=== PATIENT | female | born 1950 | race Hispanic/Latino ===

== ENCOUNTER 2022-11-09 11:14 | Inpatient (IN) | payer MEDICARE ==
[~2022-11-09] VITALS: Ht 162.6 cm; Wt 64.4 kg
[~2022-11-09 11:14] MED LIST: METFORMIN HCL500 MG PO; PHENTERMINE H37.5 MG PO; TOLTERODINE TART2 MG PO
[2022-11-09 12:02] LABS: BASOPHILS # (AUTO) 0.1 (0.0-0.1); BASOPHILS % 0.4 % (0.0-1.0); EOSINOPHILS % 0.2 % (0.0-6.0); HEMATOCRIT 40.2 % (34.2-44.1); HEMOGLOBIN 13.6 g/dL (12.0-16.0); LYMPHOCYTES # (AUTO) 1.8 (1.0-3.2); LYMPHOCYTES % 13.7 % (18.0-39.1); MEAN CORPUSCULAR HEMOGLOBIN 28.9 pg (28-32); MEAN CORPUSCULAR HGB CONC 33.8 g/dL (31-35); MEAN CORPUSCULAR VOLUME 85.5 fL (81-99); MONOCYTES # (AUTO) 1.4 (0.2-0.8); MONOCYTES % 10.3 % (4.4-11.3); NEUTROPHILS # (AUTO) 9.9 (2.1-6.9); NEUTROPHILS % 74.3 % (38.7-80.0); PLATELET COUNT 243 x10e3/uL (140-360); RED CELL DISTRIBUTION WIDTH 13.2 % (11.7-14.4)
[2022-11-09 12:11] LABS: INR 1.02; PROTHROMBIN TIME 13.9 seconds (11.9-14.5)
[2022-11-09 12:12] LABS: PARTIAL THROMBOPLASTIN TIME 29.9 seconds (23.8-35.5)
[2022-11-09] MEDS ORDERED: SODIUM CHLORIDE 0.9% 500ML 500 ML IV ONE (12:15)
[2022-11-09 12:26] LABS: ALANINE AMINOTRANSFERASE 35 IU/L (0-55); ALBUMIN 2.9 g/dL (3.5-5.0); ALBUMIN/GLOBULIN RATIO 0.6 (0.8-2.0); ALKALINE PHOSPHATASE 80 IU/L (40-150); ANION GAP 21.6 mmol/L (8-16); BLOOD UREA NITROGEN 11 mg/dL (7-26); BUN/CREATININE RATIO 13 (6-25); CARBON DIOXIDE 21 mmol/L (22-29); CHLORIDE 94 mmol/L (98-107); CREATINE KINASE 25 IU/L (29-168); CREATININE, SERUM 0.84 mg/dL (0.57-1.11); GLUCOSE 336 mg/dL (74-118); MAGNESIUM 1.3 MG/DL (1.3-2.1); POTASSIUM 3.6 mmol/L (3.5-5.1); SODIUM 133 mmol/L (136-145)
[2022-11-09 14:19] LABS: ABG HCO3 24 mmol/L (22-26); ABG PCO2 35 mmHg (35-45); ABG PH 7.44 (7.35-7.45); ABG PO2 79 mmHg (80-105); ABG TCO2 25
[2022-11-09] MEDS ORDERED: DEXTROSE 50% SYRINGE 50 ML IV PRN (15:00)
[2022-11-09] MEDS ORDERED: ONDANSETRON HCL INJ 2MG/ML 2ML 2 MG/ML VIAL IV PRN (15:00)
[2022-11-09 15:33] LABS: CLARITY,URINE TURBID (CLEAR); COLOR,URINE YELLOW (YELLOW); KETONES,URINE 2+ (NEGATIVE); LEUKOCYTE ESTERASE ,URINE MODERATE (NEGATIVE); NITRITE,URINE NEGATIVE (NEGATIVE); PROTEIN,URINE DIPSTICK TRACE (NEGATIVE); URINE UROBILINOGEN 0.2 mg/dL (0.2 - 1)
[2022-11-09 15:45] LABS: BACTERIA,URINE MODERATE /HPF; WBC,URINE (MAN) >50 /HPF (0-5); YEAST,URINE MODERATE
[2022-11-09] MEDS: INSULIN LISPRO 100 UNIT/1 ML 3ML VIAL SQ SCH ×2 (16:10→21:58)
[2022-11-09] MEDS: SODIUM CHLORIDE 0.9% 1000ML 1,000 ML IV SCH (16:11)
[2022-11-09] MEDS: ACETAMINOPHEN 325 MG TAB PO PRN (18:50)
[2022-11-09 20:00] VITALS: BP 125/61; PULSE 72; RESP 18; TEMP 98.1; O2SAT 99
[2022-11-09 20:25] VITALS: BP 125/61; PULSE 72; RESP 20; TEMP 98.1; O2SAT 99
[2022-11-09 20:43] VITALS: BP 125/61; PULSE 72; RESP 20; TEMP 98.1; O2SAT 99
[2022-11-09] MEDS ORDERED: INSULIN GLARGINE 100 UNITS/ML VIAL SQ SCH (21:00)
[2022-11-10] VITALS: BP 123/63; PULSE 88; RESP 18; TEMP 97.8; O2SAT 97
[2022-11-10 05:01] LABS: BASOPHILS % 0.5 % (0.0-1.0); EOSINOPHILS # (AUTO) 0.1 (0.0-0.4); EOSINOPHILS % 1.6 % (0.0-6.0); HEMATOCRIT 39.1 % (34.2-44.1); HEMOGLOBIN 12.7 g/dL (12.0-16.0); LYMPHOCYTES # (AUTO) 1.4 (1.0-3.2); MEAN CORPUSCULAR HEMOGLOBIN 28.9 pg (28-32); MEAN CORPUSCULAR HGB CONC 32.5 g/dL (31-35); MEAN CORPUSCULAR VOLUME 88.9 fL (81-99); MONOCYTES # (AUTO) 0.9 (0.2-0.8); MONOCYTES % 10.4 % (4.4-11.3); NEUTROPHILS # (AUTO) 5.7 (2.1-6.9); NEUTROPHILS % 69.4 % (38.7-80.0); PLATELET COUNT 166 x10e3/uL (140-360); RED CELL DISTRIBUTION WIDTH 12.9 % (11.7-14.4)
[2022-11-10 05:28] LABS: ALBUMIN 2.4 g/dL (3.5-5.0); ALBUMIN/GLOBULIN RATIO 0.6 (0.8-2.0); ANION GAP 15.4 mmol/L (8-16); CALCIUM 9.3 mg/dL (8.4-10.2); CREATININE, SERUM 0.73 mg/dL (0.57-1.11); POTASSIUM 3.4 mmol/L (3.5-5.1)
[2022-11-10] MEDS: SODIUM CHLORIDE 0.9% 1000ML 1,000 ML IV SCH ×2 (06:21→13:20)
[2022-11-10] MEDS: INSULIN LISPRO 100 UNIT/1 ML 3ML VIAL SQ SCH ×4 (07:30→22:04)
[2022-11-10 08:35] VITALS: BP 135/65; PULSE 78; RESP 16; TEMP 98.3; O2SAT 95
[2022-11-10 12:25] VITALS: BP 149/90; PULSE 94; RESP 16; TEMP 101; O2SAT 97
[2022-11-10 17:21] VITALS: BP 119/50; PULSE 78; RESP 18; TEMP 98; O2SAT 98
[2022-11-10 20:00] VITALS: BP 126/55; PULSE 77; RESP 18; TEMP 99.2; O2SAT 94
[2022-11-10 21:41] VITALS: BP 126/55; PULSE 77; RESP 18; TEMP 99.2; O2SAT 94
[2022-11-10] MEDS: THIAMINE HCL INJ 100 MG/ML 2ML VIAL IV SCH (22:02)
[2022-11-10] MEDS: INSULIN GLARGINE 100 UNITS/ML VIAL SQ SCH (22:04)
[2022-11-11] VITALS (7 sets, daily range): BP systolic 113–135; BP diastolic 56–80; PULSE 62–72; RESP 15–19; TEMP 97.7–98.7; O2SAT 96–100
[2022-11-11] MEDS: SODIUM CHLORIDE 0.9% 1000ML 1,000 ML IV SCH ×2 (04:24→14:16)
[2022-11-11] MEDS: THIAMINE HCL INJ 100 MG/ML 2ML VIAL IV SCH ×3 (06:22→21:50)
[2022-11-11] MEDS: ACETAMINOPHEN 325 MG TAB PO PRN ×2 (08:11→16:28)
[2022-11-11] MEDS: INSULIN LISPRO 100 UNIT/1 ML 3ML VIAL SQ SCH ×4 (08:14→21:53)
[2022-11-11] MEDS ORDERED: ONDANSETRON HCL 4 MG ORAL DISINTEGRATING TAB PO PRN (10:45)
[2022-11-11] MEDS ORDERED: MAGNESIUM SULFATE 2GM/50ML 50 ML IV ONE (10:52)
[2022-11-11] MEDS: INSULIN GLARGINE 100 UNITS/ML VIAL SQ SCH (21:53)
[2022-11-12] VITALS (8 sets, daily range): BP systolic 123–147; BP diastolic 55–72; PULSE 63–83; RESP 16–18; TEMP 97.4–99.2; O2SAT 96–100
[2022-11-12] MEDS: THIAMINE HCL INJ 100 MG/ML 2ML VIAL IV SCH ×3 (06:32→21:28)
[2022-11-12] MEDS: SODIUM CHLORIDE 0.9% 1000ML 1,000 ML IV SCH ×2 (06:32→14:39)
[2022-11-12] MEDS: INSULIN LISPRO 100 UNIT/1 ML 3ML VIAL SQ SCH ×4 (07:30→19:58)
[2022-11-12] MEDS: ACETAMINOPHEN 325 MG TAB PO PRN ×2 (07:46→16:01)
[2022-11-12] MEDS: INSULIN GLARGINE 100 UNITS/ML VIAL SQ SCH (19:58)
[2022-11-13] VITALS (8 sets, daily range): BP systolic 130–156; BP diastolic 61–90; PULSE 63–81; RESP 16–18; TEMP 97.2–99; O2SAT 96–100
[2022-11-13] MEDS: SODIUM CHLORIDE 0.9% 1000ML 1,000 ML IV SCH (04:40)
[2022-11-13] MEDS: ACETAMINOPHEN 325 MG TAB PO PRN (04:44)
[2022-11-13] MEDS: THIAMINE HCL INJ 100 MG/ML 2ML VIAL IV SCH ×3 (06:47→21:27)
[2022-11-13] MEDS: INSULIN LISPRO 100 UNIT/1 ML 3ML VIAL SQ SCH ×4 (09:18→21:36)
[2022-11-13] MEDS: FLUCONAZOLE 100 MG TAB PO SCH (09:31)
[2022-11-13] MEDS: INSULIN GLARGINE 100 UNITS/ML VIAL SQ SCH (21:35)
[2022-11-14] VITALS (7 sets, daily range): BP systolic 142–167; BP diastolic 61–77; PULSE 64–90; RESP 17–19; TEMP 97.5–98.7; O2SAT 97–99
[2022-11-14] MEDS: ACETAMINOPHEN 325 MG TAB PO PRN ×2 (01:57→08:14)
[2022-11-14] MEDS: SODIUM CHLORIDE 0.9% 1000ML 1,000 ML IV SCH ×2 (01:57→06:39)
[2022-11-14] MEDS: THIAMINE HCL INJ 100 MG/ML 2ML VIAL IV SCH ×2 (06:28→13:32)
[2022-11-14] MEDS: INSULIN LISPRO 100 UNIT/1 ML 3ML VIAL SQ SCH ×3 (07:30→17:13)
[2022-11-14] MEDS: FLUCONAZOLE 100 MG TAB PO SCH (08:10)
[2022-11-14] MEDS ORDERED: THIAMINE HCL 100 MG TAB PO SCH (22:00)
== END 2022-11-14 20:34 | DRG 689 ==
LOC: ER 11:22 → ERHOLD 14:56 → MERGE 14:56 → MED/SURG 19:42
PROVIDERS: ADMIT Family Medicine; ATTEND Family Medicine
DX: N39.0 Urinary tract infection, site not specified (principal); G93.41 Metabolic encephalopathy; E87.29 Other acidosis; F03.90 Unspecified dementia, unspecified severity, without behavioral disturbance, psychotic disturbance, mood disturbance, and anxiety; R53.81 Other malaise; E11.9 Type 2 diabetes mellitus without complications; N39.41 Urge incontinence; E11.65 Type 2 diabetes mellitus with hyperglycemia; E86.0 Dehydration; R53.1 Weakness; I10 Essential (primary) hypertension; D72.829 Elevated white blood cell count, unspecified; R29.6 Repeated falls; Z79.84 Long term (current) use of oral hypoglycemic drugs; Z95.2 Presence of prosthetic heart valve; Z88.2 Allergy status to sulfonamides; Z90.710 Acquired absence of both cervix and uterus; Z83.3 Family history of diabetes mellitus; Z20.822 Contact with and (suspected) exposure to COVID-19
CPT/HCPCS: 36415; 36600; 51700; 70450; 70551; 71045; 74176; 80053; 80061; 81001; 82140; 82550; 82607; 82805; 82948; 83036; 83735; 84443; 84484; 85025; 85610; 85730; 87040; 87086; 93005; 95812; 96360; 96361; 96372; 99285; J1815; J2543; J3411; J3475; J7030; J7040